=== PATIENT | female | born 1965 | race African-American/Black ===

== ENCOUNTER 2018-08-11 12:14 | Observation (INO) ==
[2018-08-11 13:14] LABS: Baso % (Auto) 0.5 % (0.0-2.0); Eos # (Auto) 0.1 th/mm3 (0.0-0.4); Eos % (Auto) 1.6 % (0.0-4.0); Hematocrit 34.8 % (35.0-46.0); Hemoglobin 11.2 gm/dL (11.6-15.3); Lymph # (Auto) 2.5 th/mm3 (1.0-4.8); Lymph % (Auto) 38.8 % (9.0-44.0); Mean Corpuscular HGB Conc 32.1 % (32.0-36.0); Mean Corpuscular Hemoglobin 29.3 pg (27.0-34.0); Mean Corpuscular Volume 91.2 fL (80.0-100.0); Mean Platelet Volume 8.5 fL (7.0-11.0); Mono # (Auto) 0.7 th/mm3 (0.0-0.9); Neut # (Auto) 3.1 th/mm3 (1.8-7.7); Neut % (Auto) 48.1 % (16.0-70.0); Platelet Count 265 th/mm3 (150-450); Red Blood Count 3.81 mil/mm3 (4.00-5.30); Red Cell Distribution Width 12.5 % (11.6-17.2); White Blood Count 6.5 th/mm3 (4.0-11.0)
--- NOTE | 2018-08-11 13:20 | XR ---
EXAM DATE: 08/11/2018 1:16 PM EDT AGE/SEX: 53 years / Female INDICATIONS: Chest Pain CLINICAL DATA: This is the patient's initial encounter. Patient reports that signs and symptoms have been present for 1 day and indicates a pain score of 7/10. MEDICAL/SURGICAL HISTORY: Hypertension. None. COMPARISON: No prior exams available for comparison. FINDINGS: Cardiomegaly. Clear lungs. Osseous structures are intact. CONCLUSION: Clear lungs. Electronically signed by: Holland Costa MD 08/11/2018 1:18 PM EDT
[2018-08-11] MEDS ORDERED: Morphine Sulfate Inj 2 MG/ML Vial IV.PUSH ONE (13:29)
[2018-08-11 13:34] LABS: Alkaline Phosphatase 53 U/L (45-117); Total Protein 8.2 g/dL (6.4-8.2)
[2018-08-11 13:47] LABS: Alanine Aminotransferase 19 U/L (10-53); Anion Gap 10 meq/L (5-15); Aspartate Aminotransferase 24 U/L (15-37); Blood Urea Nitrogen 14 mg/dL (7-18); Calcium 8.7 mg/dL (8.5-10.1); Carbon Dioxide 23.6 meq/L (21.0-32.0); Chloride 111 meq/L (98-107); Glomerular Filtration Rate Greater Than 89 mL/min (>89); Glucose,Random 81 mg/dL (74-106); Potassium 3.9 meq/L (3.5-5.1); Sodium 145 meq/L (136-145)
--- NOTE | 2018-08-11 13:55 | ED ---
HPI General Chief complaint: Chest Pain Stated complaint: Chest pain Time Seen by Provider: 08/11/18 12:17 History of Present Illness HPI narrative: Patient is a 53-year-old female presents emergency department for evaluation of sharp chest pain in the middle of her chest without radiation. She has had actually had some shortness of breath and dizziness with this as well. Symptoms started last night, they worsened while she was at voodoo this morning. She has a history of high blood pressure, obesity, was never told that her cholesterol was elevated before. Does have family history of heart disease as well. She states his symptoms have happened to her about 18 months ago, she was admitted to a hospital and had a stress test per her history which was negative. She is given 325 of aspirin prior to arrival, nitroglycerin was held as the patient has a history of allergy. Symptoms moderate, duration as above, associated signs symptoms as above, context as above Related Data Home Medications Medication Instructions Recorded Confirmed amlodipine 5 mg PO DAILY 08/11/18 08/11/18 atorvastatin 40 mg PO DAILY 08/11/18 08/11/18 baclofen 20 mg PO DAILY 08/11/18 08/11/18 bethanechol chloride 25 mg PO DAILY 08/11/18 08/11/18 citalopram 10 mg PO DAILY 08/11/18 08/11/18 clonazepam 0.5 mg PO BID 08/11/18 08/11/18 gabapentin 600 mg PO DAILY 08/11/18 08/11/18 meloxicam 15 mg PO DAILY 08/11/18 08/11/18 metoprolol tartrate 25 mg PO DAILY 08/11/18 08/11/18 montelukast 10 mg PO QPM 08/11/18 08/11/18 omeprazole 40 mg PO DAILY 08/11/18 08/11/18 oxycodone-acetaminophen 1 tab PO Q4-6H PRN 08/11/18 08/11/18 paroxetine HCl 10 mg PO DAILY 08/11/18 08/11/18 sulfamethoxazole-trimethoprim 1 tab PO BID 08/11/18 08/11/18 Allergies Allergy/AdvReac Type Severity Reaction Status Date / Time acetaminophen [From Lortab] Allergy Unknown Itching Verified 08/11/18 13:21 hydrocodone [From Lortab] Allergy Unknown Itching Verified 08/11/18 13:21 nitroglycerin Allergy Unknown Rash Verified 08/11/18 13:21 Review of Systems ROS: all other systems reviewed are negative [facility] Medical History Medical History Acid reflux (Acute) Hypercholesteremia (Acute) Hypertension (Acute) Social History Social History Substance History: No History of Abuse Second Hand Smoke Exposure: No Smoking Status: Never smoker How Often Do You Have a Drink Containing Alcohol: Monthly or less Recent Travel in [facility] within the Last 8 Weeks: No Recent Out of Country Travel within the Last 8 Weeks: No Immunization History Tetanus Immunization: <5 Years Tetanus Immunization Year if Known: 2015 Hx Influenza Vaccine This Season: Yes Exam Narrative Exam Narrative: GENERAL: Well-developed obese female in no obvious distress. SKIN: Focused skin assessment warm/dry. HEAD: Atraumatic. Normocephalic. EYES: Pupils equal and round. No scleral icterus. No injection or drainage. ENT: No nasal bleeding or discharge. Mucous membranes pink and moist. NECK: Trachea midline. No JVD. CARDIOVASCULAR: Regular rate and rhythm. No murmur appreciated. 2+ [place] pulses in all 4 extremities, no murmurs gallops or rubs. RESPIRATORY: No accessory muscle use. Clear to auscultation. Breath sounds equal bilaterally. GASTROINTESTINAL: Abdomen soft, non-tender, nondistended. Hepatic and splenic margins not palpable. MUSCULOSKELETAL: No obvious deformities. No clubbing. No cyanosis. No edema. NEUROLOGICAL: Awake and alert. No obvious cranial nerve deficits. Motor grossly within normal limits. Normal speech. PSYCHIATRIC: Appropriate mood and affect; insight and judgment normal. Course Initial Documented Vital Signs Pulse Rate 75 08/11/18 12:30 Respiratory Rate 20 08/11/18 12:30 Blood Pressure 126/76 08/11/18 12:30 Pulse Oximetry 96 08/11/18 12:30 Last Documented Vital Signs Pulse Rate 75 08/11/18 12:30 Respiratory Rate 20 08/11/18 12:30 Blood Pressure 126/76 08/11/18 12:30 Pulse Oximetry 96 08/11/18 13:02 Medical Decision Making [facility] Narrative Medical decision making narrative: Patient room the emergency department, EKG shows no signs of active ischemia, troponin negative, chest x-ray negative. Discussed with the patient concerns still remain for coronary artery disease and recommended admission to the chest pain center. She was agreeable. Medical Screen Exam Complete: Yes Emergency Medical Condition: Yes Differential Diagnosis Differential Diagnosis: ACS, SD, pneumonia, reflux, esophageal spasm Lab Data Result diagrams: 08/11/18 12:53 08/11/18 12:53 Lab Results 08/11/18 08/11/18 Range/Units 12:53 12:53 WBC 6.5 (4.0-11.0) th/mm3 RBC 3.81 L (4.00-5.30) mil/mm3 Hgb 11.2 L (11.6-15.3) gm/dL Hct 34.8 L (35.0-46.0) % MCV 91.2 (80.0-100.0) fL MCH 29.3 (27.0-34.0) pg MCHC 32.1 (32.0-36.0) % RDW 12.5 (11.6-17.2) % Plt Count 265 (150-450) th/mm3 MPV 8.5 (7.0-11.0) fL Neut % (Auto) 48.1 (16.0-70.0) % Lymph % (Auto) 38.8 (9.0-44.0) % [place] % (Auto) 11.0 H (0.0-8.0) % Eos % (Auto) 1.6 (0.0-4.0) % Baso % (Auto) 0.5 (0.0-2.0) % Neut # (Auto) 3.1 (1.8-7.7) th/mm3 Lymph # (Auto) 2.5 (1.0-4.8) th/mm3 [place] # (Auto) 0.7 (0.0-0.9) th/mm3 Eos # (Auto) 0.1 (0.0-0.4) th/mm3 Baso # (Auto) 0.0 (0.0-0.2) th/mm3 WBC Differential . Differential Comment Auto diff final Sodium 145 (136-145) meq/L Potassium 3.9 (3.5-5.1) meq/L Chloride 111 H (98-107) meq/L Carbon Dioxide 23.6 (21.0-32.0) meq/L Anion Gap 10 (5-15) meq/L BUN 14 (7-18) mg/dL Creatinine 0.80 (0.50-1.00) mg/dL Estimated GFR Greater than 89 (>89) mL/min Random Glucose 81 (74-106) mg/dL Calcium 8.7 (8.5-10.1) mg/dL Total Bilirubin 0.4 (0.2-1.0) mg/dL AST 24 (15-37) U/L ALT 19 (10-53) U/L Alkaline Phosphatase 53 (45-117) U/L Troponin I Less than 0.02 L (0.02-0.05) ng/mL Total Protein 8.2 (6.4-8.2) g/dL Albumin 4.0 (3.4-5.0) g/dL Imaging Data Radiologist's impression: Chest X-Ray 08/11/18 12:27 CONCLUSION: Clear lungs. Discharge Plan Discharge Disposition Patient Disposition: 30 Still Patient Discharge Details Diagnosis: Chest pain Physicians Team ED Provider: Tad Oliveira Rxs /Orders / Referrals /Forms Prescriptions: No Action atorvastatin 40 mg Tablet 40 mg PO DAILY RF: 0 gabapentin 600 mg Tablet 600 mg PO DAILY RF: 0 citalopram 10 mg Tablet 10 mg PO DAILY RF: 0 meloxicam 15 mg Tablet 15 mg PO DAILY RF: 0 clonazepam 0.5 mg Tablet 0.5 mg PO BID RF: 0 amlodipine 5 mg Tablet 5 mg PO DAILY RF: 0 omeprazole 40 mg Capsule,Delayed Release(Dr/Ec) 40 mg PO DAILY RF: 0 baclofen 20 mg Tablet 20 mg PO DAILY RF: 0 bethanechol chloride 25 mg Tablet 25 mg PO DAILY RF: 0 montelukast 10 mg Tablet 10 mg PO QPM RF: 0 oxycodone-acetaminophen 7.5-325 mg Tablet 1 tab PO Q4-6H PRN (Reason: Pain) RF: 0 metoprolol tartrate 25 mg Tablet 25 mg PO DAILY RF: 0 paroxetine HCl 10 mg Tablet 10 mg PO DAILY RF: 0 sulfamethoxazole-trimethoprim 800-160 mg Tablet 1 tab PO BID RF: 0 Discharge Instructions Patient Printed Instructions: Chest Pain (ED) Status ED Status: Ready for Discharge
--- NOTE | 2018-08-11 16:07 | P.HPCA ---
History of Present Illness Primary Care Physician: Dr. Carter Hale Chief Complaint: Chest pain History of Present Illness: 53 year old female with history of hypertension, hyperlipidemia, and GERD presents emergency room for further evaluation of nonexertional chest pain. Onset last evening 9:30 PM. Location midupper chest. Characterized as a "dull ache." No radiation. Took 2 aspirin before going to bed. Upon awakening discomfort remained. Proceeded to [facility] thinking the discomfort would improve overtime. While at [facility] discomfort became worse with radiation to right arm. Severe pain and right arm pain radiation lasted 30 minutes, however chest discomfort remained. No precipitating factors. Relieving factors pain medication given in ER. Pain currently rated at 2/10. No recent illness, fever , cough, or injury. Endorses similar pain last year. Seen and evaluated at hospital in [place]. Denies completing a stress test, however reports cardiac catheterization completed at that time. Denies cardiac stents placed or new medication added post cath. No known coronary artery disease or diabetes. Family history positive for early onset cardiovascular disease. Father age 38 from an MS. Past cardiac testing Cardiac catheterization completed last year, reports results normal. 05/24/2003 Lexiscan-unremarkable. Social history Known hypertension and hyperlipidemia. No known coronary artery disease or diabetes. Former smoker quit 12 years ago. Denies any alcohol or recreational drug use. Family history Father age 38 from an MS. Sister cardiac stent placed at age 50. Mother from a homicide age 37. - Diagnosis (1) Atypical chest pain (2) History of hypertension (3) History of hyperlipidemia Inpatient Certification: I certify that the inpatient services were ordered in accordance with Medicare regulations governing the order. This includes certification that hospital inpatient services are reasonable and necessary and in the case of services not specified as inpatient-only under 42 CFR 419.22(n), that they are appropriately provided as inpatient services in accordance to with the 2-midnight benchmark under 43 CFR 412.3(e) Review of Systems All other systems reviewed negative except as stated in HPI [facility] - History History Provided By: Patient - Medical / Surgical Hx Neg / Unobtainable Surgical History: No Previous Surgery - Medical History Medical History: Medical History (Last Updated 08/11/18 @ 16:43 by JOSE Martinez) Acid reflux Anxiety Chronic pain Hypercholesteremia Hypertension No significant past surgical history - Family History Family History: Family History (Last Updated 08/11/18 @ 16:44 by JOSE Martinez) Mother Homicide Sister Coronary artery disease Father Myocardial infarction - Social History I have reviewed the patient's Social History: Yes - Tobacco History Second Hand Smoke Exposure: No Smoking Status: Former smoker Cigarettes Per Day: 5 Years Smoked: 20 - Alcohol History How Often Do You Have a Drink Containing Alcohol: Monthly or less - Substance Use History Substance History: No History of Abuse - Travel History Recent Travel in the [place] Within the Last 8 Weeks: No Recent Travel Out of the Country Within the Last 8 Weeks: No - Immunization History Tetanus Immunization: <5 Years Tetanus Immunization Year if Known: 2015 Hx Influenza Vaccine This Season: Yes Medications and Allergies Active Medications: Active Medications Sodium Chloride (Ns Flush) 2 ml IV.FLUSH UNSCH PRN PRN Reason: FLUSH AFTER USING IV ACCESS Last Admin: 08/11/18 13:33 Dose: 2 ml Sodium Chloride (Ns Flush) 2 ml IV.FLUSH BID TERRELL Allergies Allergy/AdvReac Type Severity Reaction Status Date / Time acetaminophen [From Lortab] Allergy Unknown Itching Verified 08/11/18 13:21 hydrocodone [From Lortab] Allergy Unknown Itching Verified 08/11/18 13:21 nitroglycerin Allergy Unknown Rash Verified 08/11/18 13:21 Home Medications Medication Instructions Recorded Confirmed Type amlodipine 5 mg PO DAILY 08/11/18 08/11/18 History atorvastatin 40 mg PO DAILY 08/11/18 08/11/18 History baclofen 20 mg PO DAILY 08/11/18 08/11/18 History bethanechol chloride 25 mg PO DAILY 08/11/18 08/11/18 History citalopram 10 mg PO DAILY 08/11/18 08/11/18 History clonazepam 0.5 mg PO BID 08/11/18 08/11/18 History gabapentin 600 mg PO DAILY 08/11/18 08/11/18 History meloxicam 15 mg PO DAILY 08/11/18 08/11/18 History metoprolol tartrate 25 mg PO DAILY 08/11/18 08/11/18 History montelukast 10 mg PO QPM 08/11/18 08/11/18 History omeprazole 40 mg PO DAILY 08/11/18 08/11/18 History oxycodone-acetaminophen 1 tab PO Q4-6H PRN 08/11/18 08/11/18 History paroxetine HCl 10 mg PO DAILY 08/11/18 08/11/18 History sulfamethoxazole-trimethoprim 1 tab PO BID 08/11/18 08/11/18 History Exam Vital signs: Vital Signs 08/11/18 12:30 08/11/18 13:02 08/11/18 14:01 Pulse Rate 75 77 Respiratory Rate 20 18 Blood Pressure 126/76 125/70 Pulse Oximetry 96 96 96 Intake & Output 08/10/18 08/11/18 08/11/18 18:59 06:59 18:59 Weight 99.337 kg Narrative: GENERAL: Alert WN, WD, NAD, pleasant, obese, -[place] female HEAD: NC, AT EYES: Sclera clear, conjunctiva without injection, pupils equal and round ENT: Mucous membranes pink and moist NECK: Supple, no masses, trachea midline CV: RRR, without murmur, rub, gallop, no JVD, S1-S2. Chest wall nontender to palpation. RESP: Clear lungs throughout bilateral, no crackles, wheeze, rhonchi, symmetrical chest rise, nonlabored, able to speak in full sentences ABD: Soft, NT, ND, no masses, positive bowel tones EXT: Pulses +2x4, trace dependent edema MS: Normal tone x4 extremities, nontender, no obvious deformities, full range of motion NEURO: CN II through CN XII grossly intact, motor strength 5/5 PSYCH: A+O x3, flat affect, appropriate speech, appropriate mood, insight and judgment SKIN: Normal turgor, normal texture, no lesions, no rashes Results 08/11/18 12:53 08/11/18 12:53 Cardiac Enzymes 08/11/18 Range/Units 12:53 AST 24 (15-37) U/L Troponin I Less than 0.02 L (0.02-0.05) ng/mL CBC 08/11/18 Range/Units 12:53 WBC 6.5 (4.0-11.0) th/mm3 RBC 3.81 L (4.00-5.30) mil/mm3 Hgb 11.2 L (11.6-15.3) gm/dL Hct 34.8 L (35.0-46.0) % Plt Count 265 (150-450) th/mm3 Neut # (Auto) 3.1 (1.8-7.7) th/mm3 Lymph # (Auto) 2.5 (1.0-4.8) th/mm3 [place] # (Auto) 0.7 (0.0-0.9) th/mm3 Eos # (Auto) 0.1 (0.0-0.4) th/mm3 Baso # (Auto) 0.0 (0.0-0.2) th/mm3 Comprehensive Metabolic Panel 08/11/18 Range/Units 12:53 Sodium 145 (136-145) meq/L Potassium 3.9 (3.5-5.1) meq/L Chloride 111 H (98-107) meq/L Carbon Dioxide 23.6 (21.0-32.0) meq/L BUN 14 (7-18) mg/dL Creatinine 0.80 (0.50-1.00) mg/dL Calcium 8.7 (8.5-10.1) mg/dL AST 24 (15-37) U/L ALT 19 (10-53) U/L Alkaline Phosphatase 53 (45-117) U/L Total Protein 8.2 (6.4-8.2) g/dL Albumin 4.0 (3.4-5.0) g/dL Intake and Output 08/11/18 08/11/18 08/11/18 06:59 14:59 22:59 Other: Weight 99.337 kg Patient Weight 08/12/18 06:59 Weight 99.337 kg - Imaging and Cardiology Imaging: Impressions Chest X-Ray 08/11/18 12:27 CONCLUSION: Clear lungs. EKG interpretations - EKG EKG results cardiology: sinus rhythm, normal axis, normal QRS, normal ST/T Caprini VTE Risk Assessment Caprini VTE Risk Assessment: No/Low Risk (score <= 1) Caprini Risk Assessment Model: Point Value = 1 Point Value = 2 Point Value = 3 Point Value = 5 Age 41-60 Minor surgery BMI > 25 kg/m2 Swollen legs Varicose veins or History of unexplained or recurrent spontaneous Oral contraceptives or hormone replacement Sepsis (< 1 month) Serious lung disease, including pneumonia (< 1 month) Abnormal pulmonary function Acute myocardial infarction Congestive heart failure (< 1 month) History of inflammatory bowel disease Medical patient at bed rest Age 61-74 Arthroscopic surgery Major open surgery (> 45 min) Laparoscopic surgery (> 45 min) Malignancy Confined to bed (> 72 hours) Immobilizing plaster cast Central venous access Age >= 75 History of VTE Family history of VTE Factor V Leiden Prothrombin [id number] Lupus anticoagulant Anticardiolipin antibodies Elevated serum homocysteine Heparin-induced thrombocytopenia Other congenital or acquired thrombophilia Stroke (< 1 month) Elective arthroplasty Hip, pelvis, or leg fracture Acute spinal cord injury (< 1 month) Prophylaxis Regimen: Total Risk Factor Score Risk Level Prophylaxis Regimen 0-1 Low Early ambulation 2 Moderate Order ONE of the following: *Sequential Compression Device (SCD) *Heparin 5000 units SQ BID 3-4 Higher Order ONE of the following medications: *Heparin 5000 units SQ TID *Enoxaparin/Lovenox 40 mg SQ daily (WT < 150 kg, CrCl > 30 mL/min) *Enoxaparin/Lovenox 30 mg SQ daily (WT < 150 kg, CrCl > 10-29 mL/min) *Enoxaparin/Lovenox 30 mg SQ BID (WT < 150 kg, CrCl > 30 mL/min) AND/OR *Sequential Compression Device (SCD) 5 or more Highest Order ONE of the following medications: *Heparin 5000 units SQ TID (Preferred with Epidurals) *Enoxaparin/Lovenox 40 mg SQ daily (WT < 150 kg, CrCl > 30 mL/min) *Enoxaparin/Lovenox 30 mg SQ daily (WT < 150 kg, CrCl > 10-29 mL/min) *Enoxaparin/Lovenox 30 mg SQ BID (WT < 150 kg, CrCl > 30 mL/min) AND *Sequential Compression Device (SCD) Assessment and Plan - Assessment (1) Atypical chest pain Code(s): R07.89 - Other chest pain Status: Acute Plan: Admitted chest pain center. Rule out ACS with 3 sets of cardiac enzymes and EKGs. Monitor on telemetry overnight. Will be seen and evaluated by Dr. Alok Marshall in a.m. Attempt to obtain cardiac catheterization reports. Discussed likely if catheterization reports unable to be obtained may proceed with exercise stress testing. States she is able to walk on treadmill if required. Patient agreeable to plan of care and verbalizes understanding. (2) History of hypertension Code(s): Z86.79 - Personal history of other diseases of the circulatory system Status: Chronic Plan: Continue amlodipine and metoprolol. (3) History of hyperlipidemia Code(s): Z86.39 - Personal history of other endocrine, nutritional and metabolic disease Status: Chronic Plan: Continue atorvastatin.
[2018-08-11 16:48] LABS: Creatine Kinase 172 U/L (26-192)
[2018-08-11] MEDS ORDERED: ALPRAZolam 0.25 MG Tablet PO PRN (17:28)
[2018-08-11] MEDS: Morphine Inj 4 MG/ML Vial IV.PUSH PRN ×2 (17:49→22:22)
[2018-08-11 23:31] LABS: Creatine Kinase 210 U/L (26-192)
[2018-08-11 23:44] LABS: CKMB Percent 0.6 % (0.0-4.0); Creatine Kinase MB 1.3 ng/mL (0.5-3.6)
[2018-08-12] MEDS: Morphine Inj 4 MG/ML Vial IV.PUSH PRN (04:54)
[2018-08-12 08:20] VITALS: BP 130/65; PULSE 71; RESP 20; TEMP 98.1; O2SAT 95
[2018-08-12] MEDS ORDERED: amLODIPine 5 MG Tablet PO SCH (09:00)
[2018-08-12] MEDS ORDERED: Metoprolol Tartrate 25 MG Tablet PO SCH (09:00)
--- NOTE | 2018-08-12 10:28 | ECG ---
Date Performed: 08/11/2018 Time Performed: 20:26:03 PTAGE: 53 years EKG: Sinus rhythm BORDERLINE ECG PREVIOUS TRACING : 08/11/2018 15.59 Since previous tracing, no significant change noted DOCTOR: Alok Marshall Interpretating Date/Time 08/12/2018 10:27:53
--- NOTE | 2018-08-12 10:30 | ECG ---
Date Performed: 08/11/2018 Time Performed: 15:59:36 PTAGE: 53 years EKG: Sinus rhythm NORMAL ECG PREVIOUS TRACING : 08/11/2018 12.31 Since previous tracing, no significant change noted DOCTOR: Alok Marshall Interpretating Date/Time 08/12/2018 10:29:35
--- NOTE | 2018-08-12 10:31 | ECG ---
Date Performed: 08/11/2018 Time Performed: 12:31:32 PTAGE: 53 years EKG: Sinus rhythm NORMAL ECG INTERPRETATION BASED ON A DEFAULT AGE OF 40 YEARS PREVIOUS TRACING : 05/20/2006 01.49 Since previous tracing, no significant change noted DOCTOR: Alok Marshall Interpretating Date/Time 08/14/2018 06:55:55
--- NOTE | 2018-08-12 10:40 | P.PNCA ---
Subjective Interval history: Had complaint of chest pain. Denies any overnight chest discomforts. Offers no complaints at this time. Medications and Allergies Active Medications: Active Medications Alprazolam (Xanax) 0.25 mg PO Q6H PRN PRN Reason: ANXIETY Last Admin: 08/11/18 22:26 Dose: 0.25 mg Amlodipine Besylate (Norvasc) 5 mg PO DAILY REPLACED BY [facility] Atorvastatin Calcium (Lipitor) 40 mg PO DAILY REPLACED BY [facility] Baclofen (Lioresal) 20 mg PO DAILY REPLACED BY [facility] Metoprolol Tartrate (Lopressor) 25 mg PO DAILY REPLACED BY [facility] Miscellaneous (Pill Splitter) 1 each OTHER UNSCH PRN PRN Reason: PILL SPLITTER Morphine Sulfate (Morphine Inj) 2 mg IV.PUSH Q4H PRN PRN Reason: PAIN SCALE 8 TO 10 Last Admin: 08/12/18 04:54 Dose: 2 mg Ondansetron HCl (Zofran Inj) 4 mg IV.PUSH Q6H PRN PRN Reason: NAUSEA OR VOMITING Pantoprazole Sodium (Protonix) 40 mg PO DAILY REPLACED BY [facility] Paroxetine HCl (Paxil) 10 mg PO DAILY REPLACED BY [facility] Sodium Chloride (Ns Flush) 2 ml IV.FLUSH UNSCH PRN PRN Reason: FLUSH AFTER USING IV ACCESS Last Admin: 08/11/18 13:33 Dose: 2 ml Sodium Chloride (Ns Flush) 2 ml IV.FLUSH BID REPLACED BY [facility] Last Admin: 08/11/18 21:16 Dose: 2 ml Allergies Allergy/AdvReac Type Severity Reaction Status Date / Time acetaminophen [From Lortab] Allergy Unknown Itching Verified 08/11/18 13:21 hydrocodone [From Lortab] Allergy Unknown Itching Verified 08/11/18 13:21 nitroglycerin Allergy Unknown Rash Verified 08/11/18 13:21 Home Medications Medication Instructions Recorded Confirmed Type amlodipine 5 mg PO DAILY 08/11/18 08/11/18 History atorvastatin 40 mg PO DAILY 08/11/18 08/11/18 History baclofen 20 mg PO DAILY 08/11/18 08/11/18 History clonazepam 0.5 mg PO BID 08/11/18 08/11/18 History metoprolol tartrate 25 mg PO DAILY 08/11/18 08/11/18 History omeprazole 40 mg PO DAILY 08/11/18 08/11/18 History oxycodone-acetaminophen 1 tab PO Q4-6H PRN 08/11/18 08/11/18 History paroxetine HCl 10 mg PO DAILY 08/11/18 08/11/18 History Physical Exam Vital signs: Vital Signs 08/11/18 12:30 08/11/18 13:02 08/11/18 14:01 Temperature Pulse Rate 75 77 Respiratory Rate 20 18 Blood Pressure 126/76 125/70 Pulse Oximetry 96 96 96 08/11/18 16:00 08/11/18 17:52 08/11/18 20:00 Temperature 97.9 F 97.8 F Pulse Rate 65 81 Respiratory Rate 16 18 16 Blood Pressure 127/67 122/62 Pulse Oximetry 94 L 93 L 08/11/18 23:52 08/12/18 00:00 08/12/18 04:00 Temperature 98.4 F 97.9 F Pulse Rate 70 71 76 Respiratory Rate 17 18 Blood Pressure 111/66 116/63 Pulse Oximetry 93 L 97 08/12/18 08:17 Temperature 98.1 F Pulse Rate 71 Respiratory Rate 20 Blood Pressure 130/65 Pulse Oximetry 95 Intake & Output 08/11/18 08/12/18 08/12/18 18:59 06:59 18:59 Weight 99.337 kg Other: # Voids 4 Date of Last Bowel Movement 08/11/18 # Bowel Movements 0 Weight On Admission 99.337 kg Narrative: General: Patient in no apparent distress. Speaks in clear and complete sentences. Cardiac: Regular rate and rhythm without murmur gallop or rub. Respiratory: Clear to auscultate bilaterally. GI: Nontender. Bowel sounds normal. Results 08/11/18 12:53 08/11/18 12:53 Cardiac Enzymes 08/11/18 08/11/18 08/11/18 Range/Units 12:53 16:13 22:49 AST 24 (15-37) U/L CK-MB (CK-2) 1.3 (0.5-3.6) ng/mL Troponin I Less than 0.02 L Less than 0.02 L Less than 0.02 L (0.02-0.05) ng/mL CBC 08/11/18 Range/Units 12:53 WBC 6.5 (4.0-11.0) th/mm3 RBC 3.81 L (4.00-5.30) mil/mm3 Hgb 11.2 L (11.6-15.3) gm/dL Hct 34.8 L (35.0-46.0) % Plt Count 265 (150-450) th/mm3 Neut # (Auto) 3.1 (1.8-7.7) th/mm3 Lymph # (Auto) 2.5 (1.0-4.8) th/mm3 [place] # (Auto) 0.7 (0.0-0.9) th/mm3 Eos # (Auto) 0.1 (0.0-0.4) th/mm3 Baso # (Auto) 0.0 (0.0-0.2) th/mm3 Comprehensive Metabolic Panel 08/11/18 Range/Units 12:53 Sodium 145 (136-145) meq/L Potassium 3.9 (3.5-5.1) meq/L Chloride 111 H (98-107) meq/L Carbon Dioxide 23.6 (21.0-32.0) meq/L BUN 14 (7-18) mg/dL Creatinine 0.80 (0.50-1.00) mg/dL Calcium 8.7 (8.5-10.1) mg/dL AST 24 (15-37) U/L ALT 19 (10-53) U/L Alkaline Phosphatase 53 (45-117) U/L Total Protein 8.2 (6.4-8.2) g/dL Albumin 4.0 (3.4-5.0) g/dL Intake and Output 08/11/18 08/12/18 08/12/18 22:59 06:59 14:59 Other: # Voids 4 Date of Last Bowel Movement 08/11/18 # Bowel Movements 0 Weight 99.337 kg Weight On Admission 99.337 kg - Imaging and Cardiology Imaging: Impressions Chest X-Ray 08/11/18 12:27 CONCLUSION: Clear lungs. Assessment and Plan - Assessment (1) Chest pain Code(s): R07.9 - Chest pain, unspecified Status: Acute (2) History of hypertension Code(s): Z86.79 - Personal history of other diseases of the circulatory system Status: Chronic (3) History of hyperlipidemia Code(s): Z86.39 - Personal history of other endocrine, nutritional and metabolic disease Status: Chronic - Plan * Chest pain: Patient has been seen by Dr. Alok Marshall of cardiology in the chest pain center. She had normal cardiac enzymes for ruling out purposes. We were able to obtain records from heart catheterization dated May 17, 2016 and per report normal left ventricular function. Ejection fraction 60%. Essentially normal coronary arteries. At this time patient be discharged home with instructions to follow-up with PCP. Return to ED for interval issues. * Hypertension: Continue medication. * Hyperlipidemia: Continue medication. Patient is stable at this time. She is agreeable to this plan.
== END 2018-08-12 11:23 | disposition home or self-care (01) ==
LOC: NEPE 12:14 → INTOOBSV 13:51 → NEDA 13:51 → NEPFCDU 15:09
PROVIDERS: ADMIT Internal Medicine Interventional Cardiology; ATTEND Internal Medicine Interventional Cardiology
DX: E66.9 Obesity, unspecified; Z88.8 Allergy status to other drugs, medicaments and biological substances; Z82.49 Family history of ischemic heart disease and other diseases of the circulatory system; R94.31 Abnormal electrocardiogram [ECG] [EKG]; E78.5 Hyperlipidemia, unspecified; F17.210 Nicotine dependence, cigarettes, uncomplicated; I10 Essential (primary) hypertension; Z88.5 Allergy status to narcotic agent; K21.9 Gastro-esophageal reflux disease without esophagitis; E78.00 Pure hypercholesterolemia, unspecified; Z68.35 Body mass index [BMI] 35.0-35.9, adult; R07.89 Other chest pain